=== PATIENT | male | born 1990 | race Caucasian/White ===

== ENCOUNTER 2017-04-07 05:44 | Emergency (ER) | payer SELFPAY ==
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
[2017-04-07] MEDS ORDERED: Bupivacaine 0.5% 10 ML VIAL ONE (08:08)
[2017-04-07] MEDS ORDERED: HYDROcodone/Acetaminophen 10/325 mg Tablet ONE (08:16)
[2017-04-07] MEDS ORDERED: Lidocaine 1% 20 ML MDV ONE (08:17)
[2017-04-07] MEDS ORDERED: cefTRIAXone\\ROCEPHIN 1 GM VIAL ONE (08:17)
[2017-04-07] MEDS ORDERED: HYDROcodone/Acetaminophen 5/325 mg Tablet ONE (08:26)
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
== END 2017-04-07 09:13 | disposition home or self-care (01) ==
LOC: NAV ERS 05:44
DX: S02.642A Fracture of ramus of left mandible, initial encounter for closed fracture (principal); F15.10 Other stimulant abuse, uncomplicated; K00.9 Disorder of tooth development, unspecified; F17.210 Nicotine dependence, cigarettes, uncomplicated; W50.0XXA Accidental hit or strike by another person, initial encounter; Y04.8XXA Assault by other bodily force, initial encounter
CPT/HCPCS: 70450; 70486; 96372; J0696; J2001; J2270; J3490